=== PATIENT | female | born 1970 | race Caucasian/White ===

== ENCOUNTER 2019-04-04 12:51 | Emergency (ER) | payer BC ==
[~2019-04-04] VITALS: Ht 162.6 cm; Wt 101.5 kg
[2019-04-04 12:53] VITALS: BP 136/58; PULSE 65; RESP 18; Ht 162.6 cm; Wt 101.5 kg
--- NOTE | 2019-04-04 15:21 | ERD ---
ER Documentation Chief Complaint Chief Complaint sent by pmd for f/u on lt pinky finger fx HPI 49-year-old female presenting for injury to her left pinky finger. 4 days ago patient sustained a distal fifth digit fracture and is awaiting Orthopedic consultation. Patient has been wearing a splint to the affected finger. She was unsure if she should come to the ER for a foster referral or wait for her primary to file referral authorization. Patient is not in severe pain and is right-hand dominant. Denies any new injuries. Denies other medical problems. NKDA. Surgical history denies. Social history denies ROS All systems reviewed and are negative except as per history of present illness. Allergies Allergies: Uncoded Allergies: SULFA (Allergy, Mild, 04/04/19) PMhx/Soc Medical and Surgical Hx: pt denies Medical Hx History of Surgery: Yes (gallbladder, tonsillectomy,hysterrectomy,bypass,foot, left knee) Hx Alcohol Use: No Hx Substance Use: No Hx Tobacco Use: No FmHx Family History: No diabetes, No coronary disease, No other Physical Exam Vitals Vital Signs Date Temp Pulse Resp B/P (MAP) Pulse Ox O2 O2 Flow FiO2 Time Delivery Rate 04/04/19 98.6 65 18 136/58 98 12:53 (84) Physical Exam GENERAL: The patient is well-appearing, well-nourished, in no acute distress CHEST: Clear to auscultation bilaterally. There are no rales, wheezes or rhonchi. HEART: Regular rate and rhythm. No murmurs, clicks, rubs or gallops. EXTREMITIES: Tender to palpation over the distal fifth digit at the DIP joint. NEUROLOGIC: Alert and oriented. Cranial nerves II through XII intact. Motor strength in all 4 extremities with 5 out of 5 strength. Sensation grossly intact. SKIN: Bruising noted of the finger. Bandage in place Procedures/MDM ER course: The splint was applied in the position of function. Neuro intact pre-and post splint application. MDM: 49-year-old female presenting with fracture to the fifth digit of the left hand. There is no indication for further imaging today as patient is required to follow-up with orthopedist. She was unsure if she should be seen in the ER her primary so I will send patient to primary doctor for rferral to ortho. Patient is discharged with strict ER precautions. Patient is told if symptoms change or worsen to return immediately to the ER. Departure Diagnosis: Primary Impression: Finger injury Condition: Stable Patient Instructions: Finger and Toe Fractures (Broken Finger or Toe) Referrals: JESS TRAMMELL MD [facility] Additional Instructions: FOLLOW UP WITH YOUR PRIMARY CARE PHYSICIAN TOMORROW.Return to this facility if you are not improving as expected. EVANGELINA SALAZAR PA-C Apr 04, 2019 15:21
== END 2019-04-04 14:06 | disposition left against medical advice (07) ==
LOC: FTE 12:51
DX: S62.637A Displaced fracture of distal phalanx of left little finger, initial encounter for closed fracture (principal); X58.XXXA Exposure to other specified factors, initial encounter; Y92.9 Unspecified place or not applicable